=== PATIENT | male | born 1980 | race Caucasian/White ===

== ENCOUNTER 2017-09-07 20:52 | Emergency (ER) | payer MEDICAID ==
[~2017-09-07] VITALS: Ht 172.7 cm; Wt 84.1 kg
[2017-09-07 20:54] VITALS: BP 155/117
== END 2017-09-07 23:40 | disposition left against medical advice (07) ==
LOC: EMS 20:53
DX: Z53.21 Procedure and treatment not carried out due to patient leaving prior to being seen by health care provider (principal)